=== PATIENT | female | born 1990 | race American Indian/Alaskan Native ===

== ENCOUNTER 2019-10-15 16:41 | Emergency (ER) | payer SELFPAY ==
--- NOTE | 2019-10-15 17:17 | Event Note ---
ED Screening Note ED Screening Note: states she is having side effects to citalopram began taking it three days ago states she has tremors, nausea, diarrhea, and chest discomfort hx of anxiety no SI/HI LNMP 09/27/19 This initial assessment/diagnostic orders/clinical plan/treatment(s) is/are subject to change based on patients health status, clinical progression and re- assessment by fellow clinical providers in the ED. Further treatment and workup at subsequent clinical providers discretion. Patient/guardian urged not to elope from the ED as their condition may be serious if not clinically assessed and managed.
--- NOTE | 2019-10-15 18:45 | Emergency Department Report ---
HPI - General Chief Complaint: Medical Clearance Time Seen by Provider: 10/15/19 17:15 - HPI HPI: Room 40 The patient is a 29-year-old female presenting with chief complaint of tremors. The patient states 3 days ago she restarted taking her citalopram 20 mg. The patient states the first day or resume her medication she was asymptomatic. Yesterday the patient states feeling fatigued and developing resting tremors. The patient subsequently comes to the ED for evaluation. Patient states she has not spoken with her psychiatrist about the above symptoms yet. Patient denies suicidal ideation. Patient denies overdosing on her antidepressant. ED Past Medical Hx - Past Medical History Hx Psychiatric Treatment: Yes (DEPRESSION / ANXIETY) - Surgical History Additional Surgical History: C SECTION - Family History Family history: no significant - Social History Smoking Status: Current Some Day Smoker Substance Use Type: None (denies illicit drug use), Alcohol (occasional) - Medications Home Medications: Home Medications Medication Instructions Recorded Confirmed Last Taken Type Citalopram [celeXA] 10 mg PO QDAY #14 tablet 10/15/19 Unknown Rx ED Review of Systems ROS: Stated complaint: SEROTIN TOXICITY/CHEST PAIN Other details as noted in HPI Constitutional: malaise Eyes: denies: eye pain ENT: denies: throat pain Respiratory: no symptoms reported Cardiovascular: denies: chest pain Endocrine: no symptoms reported Gastrointestinal: diarrhea (per Triage nurse) Genitourinary: denies: dysuria Musculoskeletal: denies: back pain Neurological: denies: headache Physical Exam - Physical Exam Vital Signs: Vital Signs 10/15/19 17:16 Temperature 98.5 F Pulse Rate 79 Respiratory 19 Rate Blood Pressure 108/65 O2 Sat by Pulse 99 Oximetry Physical Exam: GENERAL: The patient is well-developed well-nourished female resting on stretcher not appearing to be in acute distress. [] HEENT: Normocephalic. Atraumatic. Extraocular motions are intact. Patient has moist mucous membranes. NECK: Supple. Trachea midline CHEST/LUNGS: Clear to auscultation. There is no respiratory distress noted. HEART/CARDIOVASCULAR: Regular. There is no tachycardia. There is no gallop rub or murmur. ABDOMEN: Abdomen is soft, nontender. Patient has normal bowel sounds. There is no abdominal distention. SKIN: There is no rash. There is no edema. There is no diaphoresis. NEURO: The patient is awake, alert, and oriented. The patient is cooperative. The patient has no focal neurologic deficits. The patient has normal speech. Intermittent tremors of left hand visualized MUSCULOSKELETAL: There is no evidence of acute injury. ED Course Vital Signs 10/15/19 17:16 Temperature 98.5 F Pulse Rate 79 Respiratory 19 Rate Blood Pressure 108/65 O2 Sat by Pulse 99 Oximetry - Consultations Consultation #1: 10/15/19 18:[address] Gordon paige ([phone]) 10/15/19 18:[address] Maria-recommends decreasing her citalopram to 10 mg daily and to call next week for an appointment ED Medical Decision Making - Lab Data Result diagrams: 10/15/19 18:44 10/15/19 18:44 Laboratory Tests 10/15/19 10/15/19 10/15/19 18:44 18:44 18:44 WBC 5.4 RBC 4.11 Hgb 10.6 Hct 33.5 MCV 82 MCH 26 L MCHC 32 RDW 17.1 H Plt Count 357 Lymph % (Auto) 42.0 H [place] % (Auto) 10.4 H Eos % (Auto) 1.3 Baso % (Auto) 1.7 Lymph # 2.3 [place] # 0.6 Eos # 0.1 Baso # 0.1 Seg Neutrophils % 44.6 Seg Neutrophils # 2.4 Sodium 139 Potassium 3.4 L Chloride 100.6 Carbon Dioxide 22 Anion Gap 20 BUN 15 Creatinine 0.7 Estimated GFR > 60 BUN/Creatinine Ratio 21 Glucose 71 Calcium 9.2 Total Bilirubin 0.40 AST 15 ALT 12 Alkaline Phosphatase 48 Total Creatine Kinase 53 Total Protein 7.5 Albumin 4.1 Albumin/Globulin Ratio 1.2 HCG, Qual Negative - Differential Diagnosis adverse event of citalopram, serotonin syndrome Critical care attestation.: If time is entered above; I have spent that time in minutes in the direct care of this critically ill patient, excluding procedure time. ED Disposition Clinical Impression: Adverse effect due to correct medicinal substance, properly administered Disposition: DC-01 TO HOME OR SELFCARE Is pt being admited?: No Does the pt Need Aspirin: No Condition: Stable Prescriptions: Citalopram [celeXA] 10 mg PO QDAY #14 tablet Referrals: Dr. Leyva, psychiatry [Other] - 2-3 Days (Please follow-up with your psychiatrist as soon as possible for further evaluation/management) Time of Disposition: 19:54
[2019-10-15 19:07] LABS: Basophils # (Auto) 0.1 K/mm3 (0.0-0.1); Basophils % (Auto) 1.7 % (0.0-1.8); Eosinophils # (Auto) 0.1 K/mm3 (0.0-0.4); Eosinophils % (Auto) 1.3 % (0.0-4.3); Hematocrit 33.5 % (30.3-42.9); Hemoglobin 10.6 gm/dl (10.1-14.3); Lymphocytes # (Auto) 2.3 K/mm3 (1.2-5.4); Mean Corpuscular HGB Conc 32 % (30-34); Mean Corpuscular Volume 82 fl (79-97); Monocytes # (Auto) 0.6 K/mm3 (0.0-0.8); Monocytes % (Auto) 10.4 % (0.0-7.3); Platelet Count 357 K/mm3 (140-440); Red Blood Count 4.11 M/mm3 (3.65-5.03); Red Cell Distribution Width 17.1 % (13.2-15.2)
[2019-10-15 19:28] LABS: Alanine Aminotransferase 12 units/L (7-56); Albumin 4.1 g/dL (3.9-5); BUN/Creatinine Ratio 21; Blood Urea Nitrogen 15 mg/dL (7-17); Calcium 9.2 mg/dL (8.4-10.2); Hemolysis Index 13
[2019-10-15 20:04] VITALS: BP 110/54
== END 2019-10-15 20:03 | disposition home or self-care (01) ==
LOC: ED 16:41
DX: T43.221A Poisoning by selective serotonin reuptake inhibitors, accidental (unintentional), initial encounter (principal); F32.9 Major depressive disorder, single episode, unspecified; F41.9 Anxiety disorder, unspecified; F17.200 Nicotine dependence, unspecified, uncomplicated; F10.10 Alcohol abuse, uncomplicated; Z79.899 Other long term (current) drug therapy; Y92.89 Other specified places as the place of occurrence of the external cause
CPT/HCPCS: 36415; 80053; 82550; 84703; 85025